=== PATIENT | male | born 2000 | race Caucasian/White ===

== ENCOUNTER 2022-11-03 08:16 | Emergency (ER) | payer MEDICAID ==
[~2022-11-03] VITALS: Ht 154.9 cm; Wt 74.8 kg
--- NOTE | 2022-11-03 08:25 | NUR ---
Pt brought in by self from home. Chief complaint SOB, coughing for past 2-3 weeks. Pt complains of shallow breath sounds following activity. Bilateral lower lobes diminished lung sounds. Capillary refill <3 seconds. Pt is aaox4 speaking full sentences.
[2022-11-03 08:30] VITALS: BP_SYST 139
--- NOTE | 2022-11-03 08:30 | NUR ---
Patient to ER bed 8 to gown for evaluation. Side rails up. Report given to Mouna HALEY.
--- NOTE | 2022-11-03 08:35 | NUR ---
ER at bedside examining patient.
--- NOTE | 2022-11-03 08:49 | NUR ---
[facility] with pt bedside chest xray.
[2022-11-03 09:02] LABS: BASOPHILS % (AUTO) 0.5 % (0.0-2.0); EOSINOPHILS # (AUTO) 0.1 K/uL (0.0-0.4); EOSINOPHILS % (AUTO) 1.1 % (0.0-4.0); HEMATOCRIT 46.7 % (36-54); HEMOGLOBIN 16.1 g/dL (14.0-18.0); LYMPHOCYTES # (AUTO) 1.2 K/uL (1.0-5.5); LYMPHOCYTES % (AUTO) 13.1 % (20.5-51.5); MEAN CORPUSCULAR HEMOGLOBIN 27 pg (27-31); MEAN CORPUSCULAR HGB CONC 34 % (32-36); MEAN CORPUSCULAR VOLUME 80 fL (79.0-98.0); MONOCYTES # (AUTO) 0.8 K/uL (0.0-1.0); MONOCYTES % (AUTO) 8.6 % (1.7-9.3); NEUTROPHILS % (AUTO) 76.7 % (40.0-70.0); PLATELET COUNT (AUTO) 217 K/uL (130-430); RED BLOOD CELL COUNT(AUTO) 5.86 MIL/uL (4.2-6.2); WHITE BLOOD COUNT (AUTO) 9.1 K/uL (4.8-10.8)
[2022-11-03 09:22] LABS: CALCIUM 9.2 mg/dL (8.4-11.0); CREATININE 1.04 mg/dL (0.55-1.30)
[2022-11-03 09:27] LABS: ALBUMIN 3.9 g/dL (3.4-4.8); TOTAL BILIRUBIN 0.6 mg/dL (0.0-1.0)
--- NOTE | 2022-11-03 10:00 | NUR ---
Patient given written and verbal discharge instructions and verbalizes understanding. ER MD discussed with patient the results and treatment provided. Patient in stable condition. ID arm band removed. Patient educated on general wellness and to follow up with PMD. Opportunity for questions provided and answered.
[2022-11-03 10:31] VITALS: BP_SYST 123
== END 2022-11-03 10:54 | disposition home or self-care (01) ==
LOC: SED 08:16
DX: R53.1 Weakness (principal); R06.02 Shortness of breath; R06.00 Dyspnea, unspecified; Z79.899 Other long term (current) drug therapy
CPT/HCPCS: 36415; 71045; 80053; 85025; 93005; 99285